=== PATIENT | female | born 1985 | race Hispanic/Latino ===

== ENCOUNTER 2023-01-03 17:27 | Emergency (ER) | payer SELFPAY ==
[2023-01-03] VITALS (11 sets, daily range): BP systolic 98–121; BP diastolic 70–83
[~2023-01-03] VITALS: Ht 160 cm; Wt 85.0 kg
[~2023-01-03 17:27] MED LIST: PERCOCET1 TA2 PO
[2023-01-03 18:00] LABS: BASO% 0.3 % (0-3); EOS% 1.9 % (0-8); HEMATOCRIT 37.1 % (37.0-47.0); HEMOGLOBIN 12.3 g/dl (12.0-16.0); IMMATURE GRANULOCYTES 0.2 % (0.0-5.0); LYMPH% 33.9 % (15-41); MEAN CORPUSCULAR HGB 29.5 pG CALC (26.0-32.0); MEAN CORPUSCULAR HGB CONC 33.2 g/dL CAL (32.0-36.0); MONO% 9.2 % (2-13); NEUT# 3.49 thou/uL (2.00-7.15); NEUT% 54.5 % (42-76); RED BLOOD COUNT 4.17 mill/uL (4.20-5.60)
[2023-01-03 18:19] LABS: ALKALINE PHOSPHATASE 74 u/l (38-126); ANION GAP 10 (6-22 (CALC)); BILIRUBIN, TOTAL 0.8 mg/dL (0.02-1.3); BUN 21 mg/dL (7-17); BUN/CREATININE RATIO 23 (12-20 (CALC)); CARBON DIOXIDE 28 mmol/l (22-30); CHLORIDE 105 mmol/l (95-108); CREATININE 0.9 mg/dL (0.5-1.0); GFR FOR AFR.AMER. > 60 ML/MIN (>=60 (CALC)); GFR OTHER RACES > 60 ML/MIN (>=60 (CALC)); LIPASE 139 u/l (23-300); POTASSIUM 3.7 mmol/l (3.5-5.1); SODIUM 140 mmol/l (137-146)
[2023-01-03 18:20] LABS: ALBUMIN 4.5 g/dL (3.2-5.0); SGOT/AST 37 u/l (14-36); TOTAL PROTEIN 7.7 g/dL (6.3-8.2)
[2023-01-03 18:42] LABS: URINE BILIRUBIN - DIPSTICK NEGATIVE (NEGATIVE); URINE BLOOD DIPSTICK NEGATIVE (NEGATIVE); URINE COLOR YELLOW; URINE GLUCOSE - DIPSTICK NEGATIVE (NEGATIVE); URINE KETONE TRACE mg/dL (NEGATIVE); URINE LEUK ESTERASE NEGATIVE (NEGATIVE); URINE PROTEIN - DIPSTICK NEGATIVE (NEG-TRACE); URINE UROBILINOGEN - DIPSTICK 0.2 E.U./dL (0.2)
[2023-01-03 18:43] LABS: URINE NITRITE - DIPSTICK NEGATIVE (Negative)
[2023-01-03] MEDS ORDERED: PREVACID30 M3 PO (20:18)
== END 2023-01-03 21:15 | disposition home or self-care (01) | DRG 392 ==
LOC: ED 17:27
PROVIDERS: Family Medicine
DX: K29.70 Gastritis, unspecified, without bleeding (principal)
CPT/HCPCS: Q9967